=== PATIENT | female | born 1970 | race Two or more races ===

== ENCOUNTER 2019-05-01 08:37 | Emergency (ER) | payer MEDICAID ==
[~2019-05-01] VITALS: Ht 162.6 cm; Wt 74.0 kg
[2019-05-01] MEDS ORDERED: KETOROLAC 15MG/ML VIAL IM ONE (09:15)
[2019-05-01 12:30] VITALS: BP 110/62
== END 2019-05-01 12:30 | disposition home or self-care (01) ==
LOC: ER 08:37 → EDBD 08:37 → ER 12:30
DX: M25.461 Effusion, right knee (principal)
CPT/HCPCS: 29505; 73562; 81025; 96372; 99283; J1885; Z7610